=== PATIENT | male | born 1985 | race African-American/Black ===

== ENCOUNTER 2025-06-27 08:15 | Outpatient (AMB) | payer OTHER, SELFPAY ==
--- NOTE | 2025-06-27 08:23 | A.OFFPC_ITS ---
Vital Signs 06/27/25 08:36 Height 5 ft 8.66 in Weight 174 lb 4 oz BMI 26.0 BP 167/89 H Blood Pressure Location Lt brachial Position Sitting Pulse 76 Pulse Source Pulse Oximeter Temp 98.4 F Temp Source Oral Pulse Oximetry (%) 99 Oxygen Delivery Method Room Air Intake Visit Reasons: Crumb Packer / HBP Accompanied by: Self / Same As Patient Allergies diphenhydramine (From Benadryl) Allergy (Severe, Verified 06/27/25 08:29) throat swelling aspirin Allergy (Intermediate, Verified 06/27/25 08:29) Hives ibuprofen Allergy (Intermediate, Verified 06/27/25 08:29) Hives Medication List - Last Reconciled 06/27/25 by Sánchez Jane MD Tobacco use date assessed: 06/27/25 Dental Screening Dental Screen Date: 06/27/25 Did you have a dental visit in the last 12 months?: Yes Was dental information given to patient?: Patient has dentist HPI HPI Comments History of Present Illness Details History of Present Illness The patient is a 40 year old male presenting to [facility] and for follow-up of high blood pressure. Hypertension: The patient has a history of hypertension diagnosed about three years ago and was previously prescribed amlodipine and losartan 100 mg. He reports that he has not taken any blood pressure medications for the past year. Type 2 Diabetes: The patient was diagnosed with type 2 diabetes approximately three years ago. He was previously prescribed metformin 500 mg and semaglutide (Rybelsus) but has not taken these medications for the past year. He reports he last saw a manufacturing mechanic about two years ago and has never seen a clinical staff educator, movie star, or unload associate for his diabetes. Hyperlipidemia: The patient has a history of high cholesterol, for which he was advised to take omega-3 supplements. He reports he has not taken this for the past year. Psoriasis: The patient reports a history of psoriasis for many years, which has flared up and remained persistent for the past two years without treatment. He also mentions a family history of psoriasis. Surgical History: - No prior surgeries reported. Medications: - The patient reports not taking any of his previously prescribed medications, including amlodipine, losartan, metformin, and semaglutide, for the past year. 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 - Substance Use: Denies smoking, drinkin g alcohol, or using illicit drugs. - Sleep: Reports waking up at night to u rinate but otherwise sleeps well. Family History: - Psoriasis: Reports a family history of psoriasis. Past Medical History - Hypertension: Diagnosed approximately three years ago. - Type 2 Diabetes: Diagnosed approximate ly three years ago. - Hyperlipidemia: Diagnosed previously. - Nasal blockage: Previously prescribed fluticasone for a blocked nose, which he no longer takes as the issue is resolved. - Psoriasis: History for many years. - Hospitalizations: Denies any prior hos pitalizations. Health Maintenance - Ordered comprehensive lab work includi CBC, CMP, HbA1c, lipid panel, hepatitis B, hepatitis C, HIV, magnesium, syphilis, testosterone, TSH, urinalysis, vitamin B12, folate, and vitamin D. - Patient to have blood drawn today. - Plan to follow up in two weeks to revi ew results and determine next steps. [facility] Medical History (Updated 06/27/25 @ 08:58 by Sánchez Jane MD) Upslanting toenails Xerosis cutis Psoriasis Screening for diabetic retinopathy Overweight (BMI 25.0-29.9) Hyperlipidemia Hypertension Diabetes type 2 Family History (Updated 06/27/25 @ 08:31 by Luisa Negrete CMA) Mother HTN (hypertension) Father HTN (hypertension) Social History Housing: Apartment Patient Tobacco Use Status: Never used Tobacco e-Cigarette/Vaping Use: Never Used service: No Current occupational status: employed and student Cognitive needs: No Hearing needs: No Vision needs: Yes (glasses) Questionnaire PHQ-9 Over the last 2 weeks, how often have you been bothered by any of the following problems? 1. Little interest or pleasure in doing things: not at all 2. Feeling down, depressed, or hopeless: not at all 3. Trouble falling or staying asleep, or sleeping too much: not at all 4. Feeling tired or having little energy: not at all 5. Poor appetite or overeating: not at all 6. Feeling bad about yourself - or that you are a failure or have let yourself or your family down: not at all 7. Trouble concentrating on things, such as reading the newspaper or watching television: not at all 8. Moving or speaking so slowly that other people could have noticed. Or the opposite - being so fidgety or restless that you have been moving around a lot more than usual: not at all 9. Thoughts that you would be better off or of hurting yourself in some way: not at all Total score: 0 Depression Screening Interpretation: Negative Depression Screening Done: Yes Source: Developed by Drs. Kasi Schreiber, Ann Mccrary, Ernesto Ghotra and colleagues, with an educational rea from [employer]. Thrive Questionnaire Date Thrive assessed: 06/27/25 I am a: Patient What is your living situation today?: I have a steady place to live Within the past 12 months, did the food you bought not last and you didn't have the money to get more?: Never true Within the past 12 months, did you worry whether your food would run out before you got money to buy more?: Never true Do you have trouble paying for medicines?: No Do you have trouble getting transportation to medical appointments?: No Do you have trouble paying your heating and electricity bill?: No Do you have trouble taking care of your child, family member or friend?: No Do you have trouble with day-to-day activities such as bathing, preparing meals, shopping, managing finances, etc.?: No Are you currently unemployed and looking for a job?: No Are you interested in more education?: Yes Please select the resources that you would like help with: None Currently or been in a relationship where the following occur: No concerns reported THRIVE Score: 0 AUDIT C Alcohol Use Questionnaire (AUDIT-C) 1. How often do you have a drink containing alcohol?: Never Total Score: 0 COLTON-7 AMB Questionnaire COLTON-7 Date COLTON - 7 assessed: 06/27/25 Feeling nervous, anxious, or on edge: 0 = Not at all Not being able to stop or control worryin = Not at all Worrying too much about different things: 0 = Not at all Trouble relaxin = Not at all Being so restless that it is hard to sit still: 0 = Not at all Becoming easily annoyed or irritable: 0 = Not at all Feeling afraid as if something awful might happen: 0 = Not at all Total COLTON-7 score (0-4 normal; 5-9 mild; 10-14 moderate; 15-21 severe): 0 Source: Developed by Drs. Kasi Schreiber, Ann Mccrary, Ernesto Ghotra and colleagues, with an educational rea from [employer]. Review of Systems Narrative Review of Systems - Urologic: Reports nocturia and urinary frequency. - Denies dysuria or difficulty voiding. - Musculoskeletal: Denies leg swelling. - Dermatologic: Reports psoriasis. - Neurologic: Denies tingling in the feet. - Constitutional: Denies pain. - Gastrointestinal: Reports normal bowel movements. 10-point ROS reviewed and negative except as noted in HPI Physical exam (Primary Care) Vital Signs: Last Vital Signs Temp 98.4 F 06/27/25 08:36 Pulse 76 06/27/25 08:36 BP 167/89 H 06/27/25 08:36 Pulse Ox 99 06/27/25 08:36 Oxygen Delivery Method Room Air 06/27/25 08:36 BMI result Body Mass Index 26.0 Tobacco/Smoking Status: Tobacco use Status Tobacco use date assessed 06/27/25 06/27/25 08:24 Patient Tobacco Use Status Never used Tobacco 06/27/25 08:24 e-Cigarette/Vaping Use Never Used 06/27/25 08:24 PHQ-9: PHQ-9 Score PHQ-9: Total score 0 06/27/25 08:36 Depression Screening Interpretation: Negative Thrive Assessment: Date of Thrive Assessment Date Thrive assessed 06/27/25 06/27/25 08:24 Currently or been in a relationship where the following occur: No concerns reported Narrative Physical Exam General: Well-appearing, in no acute distress. Vital signs: Within normal limits. HEENT: Normocephalic, atraumatic. PERRLA, EOMI. Conjunctiva clear, sclera anicteric. Oropharynx clear, mucous membranes moist. TMs intact bilaterally. Neck: Supple, no lymphadenopathy, no thyromegaly, no JVD or carotid bruits. Cardiovascular: RRR, normal S1/S2, no murmurs, rubs, or gallops. Peripheral pulses 2+ and symmetric. No edema. Respiratory: Lungs clear to auscultation bilaterally, no wheezes, rales, or rhonchi. Normal effort. Abdomen: Soft, non-tender, non-distended. Normoactive bowel sounds. No hepa tosplenomegaly, no masses. MSK: Full range of motion, no joint swelling or deformity. Normal gait. Skin: Warm, dry, intact. Psoriasis noted. dry skin , lesions, or pallor. up slanting toenail great toe Neuro: Alert and oriented x3. Cranial nerves II-XII intact. Strength 5/5 throughout. Sensation intact. Reflexes 2+ symmetric. Normal coordination and gait. Psych: Appropriate mood and affect. Normal judgment and insight. Office Procedures Flu Questionnaire Does the patient have a severe egg allergy?: No Does the patient have severe life threatening allergies?: No Does the patient have a fever or illness today?: No Has the patient ever had Guillain-Zapata Syndrome?: No Has the patient ever had any past reaction to a flu shot?: No Results AMB Hemoglobin A1c AMB Hemoglobin A1c 5.7 % Last Edit by Luisa Negrete CMA on 06/27/25 08:4 7 Immunizations Fluarix [id number] (PF) 45 mcg (15 mcg x 3)/0.5 mL IM syringe Performing Provider: Sánchez Jane MD [facility] Administered by: Luisa Negrete CMA on 06/27/25 08:49 Dose Route Admin Location Dispensed Lot Number Expiration Date [facility] Assistant Office Manager 0.5 mL IM Left Deltoid 0.5 mL [id number] 01/17/26 [id number] [employer]INE 2 VIS Given Date VIS Provided VIS Publication Date 06/27/25 Single Vaccine 24 Eligibility Eligibility Date Funding Source Not [facility] Eligible 06/27/25 Private Coding Level of Care Code Est Pt Level 4 (72399) Diagnoses Diabetes type 2 E11.9 Hypertension I10 Hyperlipidemia E78.5 Overweight (BMI 25.0-29.9) E66.3 Psoriasis L40.9 Xerosis cutis L85.3 Upslanting toenails Q84.6 Assessment & Plan Assessment & Plan (1) Diabetes type 2: Code(s): E11.9 - Type 2 diabetes mellitus without complications Category: Medical (2) Hypertension: Code(s): I10 - Essential (primary) hypertension Category: Medical (3) Hyperlipidemia: Code(s): E78.5 - Hyperlipidemia, unspecified Category: Medical (4) Overweight (BMI 25.0-29.9): Code(s): E66.3 - Overweight Category: Medical (5) Psoriasis: Code(s): L40.9 - Psoriasis, unspecified Category: Medical (6) Xerosis cutis: Code(s): L85.3 - Xerosis cutis Category: Medical (7) 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 Patient was informed and verbally consented to the use of an ambient scribe for clinic note documentation during this visit. Plan 1. Hypertension - The patient has been non-adherent with amlodipine and losartan for one year; these will be discontinued from his medication list to reflect current status. - Will re-evaluate blood pressure control after comprehensive lab work. 2. Type 2 Diabetes - The patient has been non-adherent with metformin and semaglutide for one year; these will be discontinued from his active medication list. - Ordered hemoglobin A1c to assess glycemic control over the past three months. - Placed referrals to a movie star for a diabetic foot exam, an unload associate to screen for retinopathy, a clinical staff educator, and a manufacturing mechanic. - A foot exam was performed in office today. 3. Hyperlipidemia - The patient is not currently taking any medication for high cholesterol. - Ordered a lipid panel to check cholesterol and triglycerides. 4. Psoriasis - A referral will be placed to dermatology for evaluation and management. - Will provide a copy of the referral to the patient. Discussion Notes I have explained to the patient that since he has not been taking his previously prescribed medications for hypertension, diabetes, and high cholesterol for the past year, I will be stopping them in his chart to accurately reflect his current regimen, which is no medications. I informed him that I will be ordering a comprehensive set of labs today to get a baseline of his overall health. We discussed the plan to re-evaluate his conditions and decide on the next steps for management once the lab results are back. I also explained the importance of diabetic care and have placed referrals for him to see a movie star for a foot exam, an unload associate to check for retinopathy, a clinical staff educator, and a manufacturing mechanic. Additionally, I placed a referral to dermatology for his psoriasis. The patient agreed to have his blood drawn today and to follow up in two weeks to review the results. Patient Instructions - You will have blood work done today to get a full picture of your health. - We have made referrals for you to see several specialists for your diabetes, including a foot doctor (movie star), an eye doctor (unload associate), a perinatal educator, and a manufacturing mechanic. - We have also made a referral for you to see a skin doctor (real estate clerk) for your psoriasis. - Please schedule a follow-up appointment in two weeks to go over your lab results and discuss the next steps for your treatment. Medical Decision Making The patient is a 40-year-old male presenting to [facility] after a lapse of over a year. He has a known history of hypertension, type 2 diabetes, and hyperlipidemia, but has been non-adherent with all prescribed medications (amlodipine, losartan, metformin, semaglutide) for the past year. Given the prolonged non-adherence, the immediate priority is to re-evaluate his current health status. The decision was made to discontinue all prior medications from his active list to reflect his current state accurately. Comprehensive lab work, including CBC, CMP, HbA1c, and a lipid panel, has been ordered to assess his metabolic control and organ function. This will provide the necessary data to make informed decisions about restarting or modifying his treatment regimen. Given his diagnosis of type 2 diabetes and lack of specialist follow-up, referrals to podiatry, ophthalmology, a clinical staff educator, and a manufacturing mechanic are crucial for comprehensive management and prevention of complications. His report of psoriasis, with a flare-up over the past two years, warrants a dermatology referral for evaluation and management. The plan is to review lab results in two weeks to formulate a tailored treatment plan. Total Time Statement 30 min Total time spent caring for the patient today includes pre-visit chart review, documentation, review of laboratory and diagnostic imaging results, medication reconciliation, medically necessary evaluation, counseling on diagnoses, care coordination, ordering appropriate tests and medications, review of tests performed by other providers, reporting test results to the patient, and communication with other healthcare providers. Orders: Orders Complete Blood Count Auto Diff Today Z13.9 - Encounter for screening, unspecified Comprehensive Met. Panel Today Z13.9 - Encounter for screening, unspecified Hepatitis C Antibody Today Z13.9 - Encounter for screening, unspecified HIV Ab/Ag Today Z13.9 - Encounter for screening, unspecified UA CC w/rflx Micro + Cult Today Z13.9 - Encounter for screening, unspecified Hemoglobin A1c Today Z13.9 - Encounter for screening, unspecified Magnesium Today Z13.9 - Encounter for screening, unspecified Vitamin D 1,25 dihydroxy Today Z13.9 - Encounter for screening, unspecified Hepatitis B Surface Antibody Today Z13.9 - Encounter for screening, unspecified AMB Hemoglobin A1c Today Z13.9 - Encounter for screening, unspecified Testosterone, Free/Total Today Z13.9 - Encounter for screening, unspecified Influenza [id number] Immunization Today Z23 - Encounter for immunization Hepatitis B Surface Antigen Today Z13.9 - Encounter for screening, unspecified Syphilis Screen Today Z13.9 - Encounter for screening, unspecified TSH reflex Free T4 Today Z13.9 - Encounter for screening, unspecified Lipid Panel Today Z13.9 - Encounter for screening, unspecified Vitamin B12 and Folate Today Z13.9 - Encounter for screening, unspecified Referrals Podiatry Referral E11.9 - Type 2 diabetes mellitus without complications Nurse Navigator Referral E11.9 - Type 2 diabetes mellitus without complications Nutrition/Dietitian Referral E11.9 - Type 2 diabetes mellitus without complications Dermatology Referral L40.9 - Psoriasis, unspecified Ophthalmology Referral Z13.5 - Encounter for screening for eye and ear disorders
[2025-06-27 08:36] VITALS: BP 167/89; PULSE 76; TEMP 36.9; O2SAT 99; BMI 26.0
== END 2025-06-27 09:06 | disposition home or self-care (01) ==
LOC: HO.HMCFMS 08:16
PROVIDERS: PCP Student in an Organized Health Care Education/Training Program; Visit Provider Student in an Organized Health Care Education/Training Program
DX: E11.9 Type 2 diabetes mellitus without complications (principal); I10 Essential (primary) hypertension; E78.5 Hyperlipidemia, unspecified; E66.3 Overweight; L40.9 Psoriasis, unspecified; L85.3 Xerosis cutis; Q84.6 Other congenital malformations of nails; Z13.9 Encounter for screening, unspecified; Z23 Encounter for immunization

== ENCOUNTER 2025-06-27 08:15 | Outpatient (REF) | payer OTHER, SELFPAY ==
[2025-06-27 13:42] LABS: Appearance Urine Turbid; Glucose Urine UA Negative (Negative); PH 6.0 (5.0-9.0); Specific Gravity - Urine 1.025 (1.005-1.025)
[2025-06-27 13:48] LABS: MANUAL DIFF FLAG NO
[2025-06-27 14:20] LABS: Alanine Aminotransferase 36 U/L (0-40); Albumin Level 4.5 g/dL (3.5-5.0); Alkaline Phosphatase 108 U/L (39-117); Anion Gap 11 (12-20); Aspartate Amino Transferase 26 U/L (5-37); Blood Urea Nitrogen 16 mg/dL (9-16); Calcium 9.1 mg/dL (8.4-10.2); Carbon Dioxide 26 mmol/L (22-29); Chloride 109 mmol/L (96-108); Cholesterol 218 mg/dL (<200); Estimated Glomerular Filt Rate > 60; HDL Cholesterol 45 mg/dL (>40); Magnesium 2.3 mg/dL (1.6-2.6); Potassium 3.9 mmol/L (3.3-5.1); Sodium 142 mmol/L (135-145); Total Protein 7.7 g/dL (6.5-8.0); Triglycerides 87 mg/dL (<150)
[2025-06-27 14:21] LABS: Hematocrit 50.5 % (42.0-52.0); Hemoglobin 16.5 g/dl (14.0-18.0); Imm Gran Abs Auto 0.05 X10*3/uL (0.00-0.03); Imm Gran Pct Auto 0.7 % (0.0-0.4); Lymphocytes Absolute Auto 3.4 X10*3/uL (1.2-4.9); Mean Corpuscular HGB Conc 32.7 g/dl (31.0-36.0); Mean Corpuscular Hemoglobin 28.9 pg (27.0-33.0); Mean Corpuscular Volume 88.4 fL (80.0-98.0); NRBC Abs Auto 0.000 X10*3/uL (0.0-0.012); NRBC Pct Auto 0.0 /100WBC (0.0-0.2); Platelet Count 312 X10*3/uL (160-400); Red Blood Count 5.71 X10*6/uL (4.60-5.80); White Blood Count 7.3 X10*3/uL (4.8-10.8)
[2025-06-27 14:38] LABS: Vitamin B12 334 pg/mL (200-900)
[2025-06-27 18:24] LABS: Folate 6.5 ng/mL (> or = 4.0)
[2025-06-28 03:59] LABS: Syphilis Screen Nonreactive (Nonreactive)
[2025-06-28 04:14] LABS: HBS Num1 12.93 mIU/mL (0-7.99); HBsAGNum1 0.53 S/CO (0.00-0.99); HIV Num 1 0.06 S/CO (0.00-0.99); Hepatitis B Surface Antigen Negative (Negative); ~HepC Num1 0.07 S/CO (0.00-0.79); ~Hepatitis B Surface Antibody REACTIVE (Nonreactive); ~Hepatitis C Antibody Nonreactive (Nonreactive)
[2025-07-01 15:04] LABS: VITAMIN D (1,25 OH) D3 57 pg/mL; Vit D (1,25-Dihydroxy) Total 57 pg/mL (18-72); Vitamin D (1,25 OH) D2 <8 pg/mL
[2025-07-02 17:14] LABS: Testosterone, Free 69.8 pg/mL (35.0-155.0)
== END 2025-06-27 08:16 | disposition home or self-care (01) ==
LOC: HO.HKASLDS 08:15
PROVIDERS: PCP Student in an Organized Health Care Education/Training Program; Visit Provider Student in an Organized Health Care Education/Training Program
DX: Z13.9 Encounter for screening, unspecified (principal); Z23 Encounter for immunization; E11.9 Type 2 diabetes mellitus without complications; I10 Essential (primary) hypertension; E78.5 Hyperlipidemia, unspecified; E66.3 Overweight; L85.3 Xerosis cutis; L40.9 Psoriasis, unspecified; Q84.6 Other congenital malformations of nails; Z68.26 Body mass index [BMI] 26.0-26.9, adult
CPT/HCPCS: 36415; 80053; 80061; 81003; 82607; 82652; 82746; 83036; 83735; 84402; 84403; 84443; 85025; 86706; 86780; 86803; 87340; 87389; 90471; 90656; 99212

== ENCOUNTER 2025-07-18 15:06 | Outpatient (AMB) | payer OTHER, SELFPAY ==
--- NOTE | 2025-07-18 15:10 | MHC.PC.OV ---
Vital Signs 07/18/25 15:13 07/18/25 15:28 Height 5 ft 8.66 in Weight 244 lb 2 oz BMI 36.4 BP 160/95 H 134/82 Blood Pressure Location Lt brachial Lt brachial Position Sitting Sitting Respiration 17 Pulse 70 Pulse Source Pulse Oximeter Temp 98.3 F Temp Source Oral Pulse Oximetry (%) 97 Oxygen Delivery Method Room Air Intake Visit Reasons: 2 wk - lab review Intake Note: Patient present for lab review. Process Eng Required: No Accompanied by: Self / Same As Patient Allergies diphenhydramine (From Benadryl) Allergy (Severe, Verified 07/18/25 15:12) throat swelling aspirin Allergy (Intermediate, Verified 07/18/25 15:12) Hives ibuprofen Allergy (Intermediate, Verified 07/18/25 15:12) Hives Medication List - Last Reconciled 07/19/25 by Sánchez Jane MD No Known Home Meds Tobacco use date assessed: 06/27/25 Dental Screening Dental Screen Date: 06/27/25 HPI HPI Comments History of Present Illness Details History of Present Illness The patient is a 40 year old male presenting for review of lab results. Prediabetes: Recent lab results show an HbA1c of 5.9, which falls within the prediabetic range of 5.7 to 6.4. Hypercholesterolemia: The patient's recent lab results indicate a total cholesterol level of 218 mg/dL, which is above the recommended level of less than 200 mg/dL, and an LDL cholesterol of 156 mg/dL, which is above the goal of less than 100 mg/dL. Social History: - Nutrition: The patient will be referred to a accounting consultant for education on changing eating habits. - Exercise: The patient has been advised to increase physical activity, with a goal of 30 minutes of moderate-intensity exercise daily. Diagnostic Results: - HbA1c: 5.9 (prediabetic range 5.7-6.4, diabetes ???6.5) - Total Cholesterol: 218 mg/dL (goal <200 mg/dL) - LDL Cholesterol: 156 mg/dL (goal <100 mg/dL) Past Medical History Health Maintenance - Discussed lifestyle modifications for management of prediabetes and hypercholesterolemia. - A referral for nutritional counseling has been placed to address eating habits. - Recommended 30 minutes of moderate-intensity physical activity daily, equivalent to 150 minutes per week, to help with weight loss and glycemic control. - Advised follow-up in 3 months to repeat labs and assess progress. This 37-year-old male established care on October 30, 2021, for an annual physical after a 10-year lapse in medical attention. At his initial visit, he reported a year-long history of frequent headaches and high blood pressure readings (160s-170s systolic) taken at his workplace. His physical exam was significant for a blood pressure of 160/100 mmHg, a pulse of 108, and obesity with a BMI of 36.03. He reported drinking 5-6 beers each weekend and had a family history of hypertension in both parents. Initial assessments included essential hypertension, snoring, and obesity. An initial workup was promptly initiated. An EKG performed on the first day of care was noted to be abnormal, meeting high voltage criteria.?Laboratory studies were also ordered.?A follow-up visit on November 13, 2021, reviewed these results, leading to diagnoses of hypertriglyceridemia, dyslipidemia, and prediabetes. His blood pressure remained elevated at 160/100 mmHg.?A plan was made for an echocardiogram, a sleep study, and counseling on a Mediterranean diet and weight loss. Management for his cardiovascular risk factors was started. He was initially prescribed lisinopril 10 mg,?but this was later discontinued due to an allergy.?He was then started on amlodipine 2.5 mg daily on November 13, 2021,?which was increased to 5 mg on November 27, 2021, due to persistent hypertension (BP 140/90).?For his dyslipidemia, Vascepa (icosapent ethyl) was started.?An echocardiogram on December 05, 2021, revealed mild concentric left ventricular hypertrophy (LVH) with a normal ejection fraction of 55%. By October 2022, the patient's clinical picture had evolved. He reported new symptoms of increased thirst (polydipsia) and frequent nighttime urination.?His weight had increased, with his BMI rising to 40.61. Laboratory tests, including hemoglobin A1c, were ordered to investigate his polydipsia.?A follow-up on December 18, 2022, confirmed a new diagnosis of Type 2 Diabetes Mellitus with hyperglycemia, based on the lab results from October.?The patient acknowledged difficulty with lifestyle changes, including reducing his juice intake. Treatment was initiated for his newly diagnosed Type 2 Diabetes. On December 18, 2022, he was started on metformin 500 mg daily and Rybelsus (semaglutide), which was increased to 7 mg daily.?Losartan was also added to his regimen for hypertension.?He received a referral to a inclusion special educator and an endocrinology follow-up was scheduled.?Other ongoing treatments included fluticasone for chronic rhinitis and icosapent ethyl for dyslipidemia. As of his most recent visit on June 27, 2023, the patient showed significant improvement. His blood pressure was better controlled at 122/86 mmHg, and his HgbA1c had decreased to 5.4% from a high of 8% earlier in the year. He reported tolerating his medications well and making positive lifestyle changes, such as reducing juice intake. His diagnoses included well-controlled essential hypertension and Type 2 Diabetes without complications, along with moderate obstructive sleep apnea, dyslipidemia, severe obesity, and left ventricular hypertrophy. The patient?s current primary diagnoses are Type 2 Diabetes Mellitus, essential hypertension, dyslipidemia, moderate obstructive sleep apnea, and class 2 severe obesity.?His current medication regimen includes amlodipine 10 mg daily and losartan 100 mg daily for hypertension; metformin and Rybelsus (semaglutide) for diabetes; Vascepa (icosapent ethyl) for dyslipidemia; and fluticasone (Flonase) for chronic rhinitis. He is tolerating these medications well. The plan is to continue this regimen and follow up in six months. 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 status: employed and student Cognitive needs: No Hearing needs: No Vision needs: Yes (glasses) Questionnaire Thrive Questionnaire Date Thrive assessed: 06/27/25 I am a: Patient What is your living situation today?: I have a steady place to live Within the past 12 months, did the food you bought not last and you didn't have the money to get more?: Never true Within the past 12 months, did you worry whether your food would run out before you got money to buy more?: Never true Do you have trouble paying for medicines?: No Do you have trouble getting transportation to medical appointments?: No Do you have trouble paying your heating and electricity bill?: No Do you have trouble taking care of your child, family member or friend?: No Do you have trouble with day-to-day activities such as bathing, preparing meals, shopping, managing finances, etc.?: No Are you currently unemployed and looking for a job?: No Are you interested in more education?: Yes Currently or been in a relationship where the following occur: No concerns reported THRIVE Score: 0 COLTON-7 AMB Questionnaire COLTON-7 Date COLTON - 7 assessed: 06/27/25 Source: Developed by Drs. Kasi Schreiber, Ann Mccrary, Ernesto Ghotra and colleagues, with an educational rea from [employer] Review of Systems Narrative Review of Systems - General: The patient denied any questions or concerns when asked. 10-point ROS reviewed and negative except as noted in HPI Physical exam (Primary Care) Vital Signs: Last Vital Signs Temp 98.3 F 07/18/25 15:13 Pulse 70 07/18/25 15:13 Resp 17 07/18/25 15:13 BP 134/82 07/18/25 15:28 Pulse Ox 97 07/18/25 15:13 Oxygen Delivery Method Room Air 07/18/25 15:13 BMI result Body Mass Index 36.4 Tobacco/Smoking Status: Tobacco use Status Tobacco use date assessed 06/27/25 07/18/25 15:15 Patient Tobacco Use Status Never used Tobacco 07/18/25 15:15 e-Cigarette/Vaping Use Never Used 07/18/25 15:15 Thrive Assessment: Date of Thrive Assessment Date Thrive assessed 06/27/25 07/18/25 15:15 Currently or been in a relationship where the following occur: No concerns reported Narrative Physical Exam General: Well-appearing, in no acute distress. Vital signs: Within normal limits. HEENT: Normocephalic, atraumatic. PERRLA, EOMI. Conjunctiva clear, sclera anicteric. Oropharynx clear, mucous membranes moist. TMs intact bilaterally. Neck: Supple, no lymphadenopathy, no thyromegaly, no JVD or carotid bruits. Cardiovascular: RRR, normal S1/S2, no murmurs, rubs, or gallops. Peripheral pulses 2+ and symmetric. No edema. Respiratory: Lungs clear to auscultation bilaterally, no wheezes, rales, or rhonchi. Normal effort. Abdomen: Soft, non-tender, non-distended. Normoactive bowel sounds. No hepatosplenomegaly, no masses. MSK: Full range of motion, no joint swelling or deformity. Normal gait. Skin: Warm, dry, intact. No rashes, lesions, or pallor. Neuro: Alert and oriented x3. Cranial nerves II-XII intact. Strength 5/5 throughout. Sensation intact. Reflexes 2+ symmetric. Normal coordination and gait. Psych: Appropriate mood and affect. Normal judgment and insight. Coding Level of Care Code Est Pt Level 3 (18018) Add On Problem Visit Only Diagnoses Diabetes type 2 E11.9 Hyperlipidemia E78.5 Class 2 obesity E66.812 Hypertension I10 Moderate obstructive sleep apnea G47.33 Assessment & Plan Assessment & Plan (1) Diabetes type 2: Comment: diet controlled Code(s): E11.9 - Type 2 diabetes mellitus without complications Category: Medical (2) Hyperlipidemia: Comment: add statin due to DMT2 dx Code(s): E78.5 - Hyperlipidemia, unspecified Category: Medical (3) Class 2 obesity: Code(s): E66.812 - Obesity, class 2 Category: Medical (4) Hypertension: Comment: diet controlled Code(s): I10 - Essential (primary) hypertension Category: Medical (5) Moderate obstructive sleep apnea: Code(s): G47.33 - Obstructive sleep apnea (adult) (pediatric) Category: Medical Plan Consent Patient was informed and verbally consented to the use of an ambient scribe for clinic note documentation during this visit. Plan 1. Prediabetes/DMT2 - The patient's HbA1c of 5.9 was discussed, noting it falls in the prediabetic range and requires intervention to prevent progression to diabetes. - Management will focus on lifestyle changes, including dietary modification and increased physical activity. - A nutrition referral has been placed for education on eating habits. - Pharmacotherapy is deferred at this time, as there is significant room for improvement with lifestyle changes. - Plan to follow up in 3 months to repeat labs and evaluate progress. 2. Hypercholesterolemia - Addressed elevated total cholesterol of 218 mg/dL and LDL cholesterol of 156 mg/dL. - Management will consist of lifestyle modifications, including changes in eating habits and increased physical activity, to reduce cardiovascular risk. - Plan to re-evaluate with repeat lipid panel in 3 months. Discussion Notes I reviewed the patient's recent lab results, which showed an HbA1c of 5.9, indicating prediabetes, and elevated cholesterol with a total cholesterol of 218 and LDL of 156. We discussed that these are lifestyle-related issues and that immediate changes are needed to prevent progression to type 2 diabetes and reduce his cardiovascular risk. I advised a plan focused on lifestyle modification, including a referral to nutrition and a recommendation for 30 minutes of moderate-intensity exercise daily. I explained that I am not recommending medication at this time because his A1c of 5.9 allows room for improvement through these changes, but would reconsider if his level was higher, such as 6.4. We agreed to a follow-up appointment in 3 months to repeat labs and assess his progress. Patient Instructions - Your recent lab work shows you are at risk for developing diabetes and have high cholesterol. - We have arranged for a behavior support specialist to contact you to help you with changing your eating habits. - Try to get at least 30 minutes of physical activity every day. - Your exercise should be at a moderate pace, which means you should be able to talk but not sing while doing it. - For now, we will focus on these lifestyle changes instead of starting medication. - Please schedule a follow-up appointment in 3 months to check your labs and see how you are doing. Medical Decision Making The patient is a 40-year-old male whose recent lab work is significant for an HbA1c of 5.9 and dyslipidemia, specifically a total cholesterol of 218 mg/dL and LDL of 156 mg/dL. These results confirm diagnoses of prediabetes and hypercholesterolemia, which are primarily lifestyle-driven. Given that his A1c is at the lower end of the prediabetic range, immediate pharmacotherapy is not indicated. The decision was made to initiate a trial of intensive lifestyle modification, including a formal nutrition referral and a specific exercise prescription of 30 minutes of moderate-intensity activity daily. This approach aims to prevent the progression to type 2 diabetes and reduce overall cardiovascular risk. A follow-up in 3 months is essential to reassess metabolic and lipid panels to determine the effectiveness of these interventions and to decide on any future need for medication. Total Time Statement 20 min Total time spent caring for the patient today includes pre-visit chart review, documentation, review of laboratory and diagnostic imaging results, medication reconciliation, medically necessary evaluation, counseling on diagnoses, care coordination, ordering appropriate tests and medications, review of tests performed by other providers, reporting test results to the patient, and communication with other healthcare providers. Medications: New atorvastatin (Lipitor) 20 mg PO BEDTIME 90 tabs 0RF
[2025-07-18 15:13] VITALS: BP 160/95; PULSE 70; RESP 17; TEMP 36.8; O2SAT 97; BMI 36.4
[2025-07-18 15:28] VITALS: BP 134/82
--- OUTSIDE RECORDS SUMMARY | 2025-07-18 17:21 | XMS_ITS | Clinical Summary ---
Author Organization [facility] Address [address] [place] [address] Phone Care Team Providers Care Netezza Developer Name Role Phone Physician, No Pcp Primary Care Provider Unavaila ble Allergies Active Allergy Reactions Criticality Noted Date Comments Aspirin Hives Medium 09/04/2024 Diphenhydramine Hcl Anaphylaxis High 09/04/2024 My throat closing Ibuprofen Hives,Angioedema High 09/04/2024 My throat swelling Medical History Medical History Date Comments Hypertension Diabetes mellitus ([facility] V24, [facility] V28) Social History Tobacco Use Types Packs/Day Years Used Date Smoking Tobacco: Never Tobacco Cessation:Counseling Given: Not Answered Alcohol Use Standard Drinks/Week Comments Never 0 (1 standard drink = 0.6 oz pur e alcohol) Sex and Gender Information Value Date Recorded Sex Assigned at Male 09/04/2024 6:56 PM EST Legal Sex Male 5:45 PM EST Gender Identity Male 09/04/2024 6:56 PM EST Sexual Orientation Straight 09/04/2024 6: 56 PM EST Last Filed Vital Signs Vital Sign Reading Time Taken Comments Blood Pressure 126/85 09/04/2024 5:55 PM EST Pulse 80 09/04/2024 5:55 PM EST Temperature 36.3 C (97.3 F) 09/04/2024 5:55 PM EST Respiratory Rate 20 09/04/2024 5:55 PM EST Oxygen Saturation 100% 09/04/2024 5:55 PM EST Inhaled Oxygen Concentration - - Weight 106 kg (233 lb) 09/04/2024 5:55 PM EST Height 175.3 cm (5' 9 ) 09/04/2024 5:55 PM EST Body Mass Index 34.41 09/04/2024 5:55 PM EST Plan of Treatment Health Maintenance Due Date Last Done Comments Diabetes: Annual Foot Exam 1997 Diabetes: Annual Retina Eye Exam 1997 DTaP,Tdap,and Td Vaccines (1 - Tdap) 2006 Hepatitis B Vaccines (1 of 3 - 19+ 3-dose series) 2006 HPV Vaccines (1 - 3-dose SCD M series) 2014 Diabetes: Annual GFR (Glomerular Filtration Rate) 06/23/2024 06/23/2023, 10/31/2021 Depression Screening 07/21/2024 Cholesterol Screening (Lipid Panel) 09/04/2024 Diabetes: Annual Urine Albumin-Creatinine Ratio (uACR) 09/04/2024 06/23/2023 Diabetes: Blood Sugar Contro l Test (HGBA1C) 09/04/2024 HIV Screening 09/04/2024 Hypertension/CHF/CAD Annual BMP Blood Test 09/04/2024 06/23/2023, 10/31/2021 Social Influencers of Health Screening 09/04/2024 COVID-19 Vaccine (4 - 2024-2 6 season) 2025 08/22/2021, 09/23/2020, 09/02/2020 Influenza Vaccine (#1) 2025 04/19/2016 RSV Immunization Adult Patients (1 - 1-dose 75+ series) 2062 Hepatitis C Screening Completed 10/31/2021 Pneumococcal Vaccine: Pediatrics (0 to 5 Years) and At-Risk Patients (6 to 49 Years) Aged Out 06/27/2023 No longer eligible b ased on patient's age to complete this topic HIB Vaccines Aged Out No longer eligi ble based on patient's age to complete this topic Hepatitis A Vaccines Aged Out No long er eligible based on patient's age to complete this topic IPV Vaccines Aged Out No longer eligi ble based on patient's age to complete this topic MMR Vaccines Aged Out No longer eligi ble based on patient's age to complete this topic Meningococcal ACWY Vaccine Aged Out N o longer eligible based on patient's age to complete this topic Meningococcal B Vaccine Aged Out No l onger eligible based on patient's age to complete this topic RSV Immunization Patients Under 20 months Aged Out No longer eligible b ased on patient's age to complete this topic Varicella Vaccines Aged Out No longer eligible based on patient's age to complete this topic Insurance [facility] PL[facility] Care Teams Netezza Developer Relationship Specialty Start Date End Date Physician, No Pcp PCP - General 09/04/24
--- OUTSIDE RECORDS SUMMARY | 2025-07-18 17:21 | XMS_ITS | Encounter Summary ---
Author Organization [facility] Address [address] [place] [id number] Phone Care Team Providers Care Medical Doctor Md/Medical Director Name Role Phone Breanna Bradley DO Primary Care Provider Breanna Bradley DO Unavailable [phone] Brian Cisneros MD Unavailable [phone] Harvey Valentine MD Unavailable Lisa Myers PharmD Un available Encounter Details Date Type Department Care Team (Latest Contact Info) Description 09/12/2023 Ancillary Orders [facility] [address] [place] [address] Breanna Bradley DO [address] [place] [address] [email or web address] Screening examination for pulmonary tuberculosis (Primary Dx) Social History Tobacco Use Types Packs/Day Years Used Date Smoking Tobacco: Never Smokeless Tobacco: Never Alcohol Use Standard Drinks/Week Comments Yes 0 (1 standard drink = 0.6 oz pur e alcohol) 3 times weekly Education Answer Date Recorded Are you interested in more education? Not on kiran e 11/16/2022 Are you concerned about learning? Not on file 11/16/2022 No 11/16/2022 No 11/16/2022 Digital Access Answer Date Recorded No 12/11/2022 No 12/11/2022 Reliable internet access at home? Not on file 12/11/2022 Device with a working camera? Not on file Sex and Gender Information Value Date Recorded Sex Assigned at Male 08/22/2021 4:18 PM EST Legal Sex Male 4:14 PM EST Gender Identity Male 08/22/2021 4:18 PM EST Sexual Orientation Straight 08/22/2021 4: 18 PM EST documented as of this encounter Plan of Treatment Not on file documented as of this encounter Goals Goal Patient Goal Type Associated Problems Recent Progress Patient-Stated? Author CHW: Chronic Disease Management Care Management No Ani Ramirez [place] documented as of this encounter Results * XR CHEST PA AND LATERAL 2 VIEWS (09/12/2023 3:56 PM EST) Anatomical Region Laterality Modality Chest Radiographic Sara ging Narrative 09/12/2023 3:58 PM EST Table formatting from the original result was not included. XR CHEST Clinical History: 1. Screening examination for pulmonary tuberculosis Date of study: 09/12/23 COMPARISON: [None.] VIEWS: 2 FINDINGS: No airspace consolidation or pleural effusion evident. Heart appears normal in size. Mild curvature of thoracic spine convex left. IMPRESSION: No acute abnormality evident on chest radiograph. Lungs appear clear. Slight curvature of the spine which may relate to patient positioning or mild scoliosis. Performed at [facility] Breanna Bradley DO IMG XR CHEST Final Result documented in this encounter Visit Diagnoses Diagnosis Screening examination for pulmonary tuberculosis- Primary Screening examination for pulmonary tuberculosis documented in this encounter Additional Health Concerns Assessment Noted Time PHQ-9 Depression Total Score: 1 10/31/19 22 3:19 PM EDT PHQ-2 Depression Total Score: 0 10/31/19 22 3:19 PM EDT documented as of this encounter Care Teams Medical Doctor Md/Medical Director Relationship Specialty Start Date End Date Breanna Bradley DO [address] [place] [id number] PCP - General Family Medicine 10/23/21 Breanna Bradley DO [address] [place] [address] [email or web address] Insurance Assigned Provider 10/25/23 02/28/24 Brian Cisneros MD [address] [place] [address] [email or web address] Fresh Foods Technician Cardiology 10/27/22 Harvey Valentine MD [address] [place] [address] [email or web address] Detective Chief Internal Medicine 10/27/22 Lisa Myers, [employer] [address] [place] [address] [email or web address] Pharmacist Pharmacy 05/30/23 documented as of this encounter Additional Source Comments The information contained in this document represents components of the legal health record. It is not the complete legal health record.[facility]
--- OUTSIDE RECORDS SUMMARY | 2025-07-18 17:21 | XMS_ITS | Clinical Summary ---
Author Organization [facility] Address [address] [address] Phone Care Team Providers Care Shovel Logger Name Role Phone Breanna Bradley DO Primary Care Provider Brian Cisneros MD Unavailable [phone] Harvey Valentine MD Unavailable Lisa Myers PharmD Un available Allergies Active Allergy Reactions Criticality Noted Date Comments Aspirin Hives Medium 10/30/2021 Diphenhydramine Hcl 10/30/2021 Lisinopril Cough High 11/13/2021 Medications fluticasone propionate (FLONASE) 50 mcg/actuation nasal spray 2 sprays each nostril 5 minutes apart every 24 hours 1 mL 1 2 Active amLODIPine (NORVASC) 10 MG tabletIndications :Essential hypertension TAKE 1 TABLET BY MOUTH EVERY DAY 90 tablet 3 3 Active metFORMIN (GLUCOPHAGE) 500 MG tabletIndications :Type 2 diabetes mellitus without complication, without long-term current use of insulin Take 1 tablet (500 mg total) by mouth daily. Administer with a meal. 90 tablet 4 3 Active icosapent ethyL (VASCEPA) 1 gram capsuleIndication s:Hypertriglyceri demia TAKE 2 CAPSULES BY MOUTH 2 TIMES A DAY. 360 capsule 3 3 Active losartan (COZAAR) 100 MG tabletIndications :Essential hypertension take 1 tablet by mouth every day 90 tablet 3 4 Active RYBELSUS 14 mg tabletIndications :Type 2 diabetes mellitus without complication, without long-term current use of insulin take 1 tablet by mouth every day 90 tablet 4 Active Active Problems Problem Noted Date Diagnosed Date Type 2 diabetes mellitus wit hout complication, without long-term current use of insulin 10/27/2022 Overview (07/06/2023): Last HgbA1c 5.4%, down from 8% earlier this year. Pt should continue current regimen. Assessment & Plan (02/25/2023 4:02 PM EDT): Improving controlled type 2 DM. Patient has modified diet. With diet, Rybelsus and metformin, A1c improved from 8 to 6 in 3 months. Patient is doing well. Patient is not interested in injectables. Plan - Continue diet Increase Rybelsus to 14 mg as tolerated Continue metformin See him in 6 months if stable. Left ventricular hypertrophy 02/26/2022 Assessment & Plan (02/26/2022 12:18 PM EDT): Borderline LVH noted on EKG from 12/09. Echo confirmed the presence of mild LVH which is likely related to his hypertension Class 2 severe obesity with body mass index (BMI) of 35 to 39.9 with serious comorbidity 12/19/2021 Assessment & Plan (02/25/2023 4:03 PM EDT): Doing well with GLP-1 RA and diet. Assessment & Plan (12/19/2021 3:38 PM EDT): Importance of weight loss was discussed in regards to improving the degree of sleep disordered breathing and snoring as well as reduction of mean pressure requirements, avoidance of excessive mask leak and related discomfort Deviated nasal septum 12/19/2021 Overview (12/19/2021): Left side Assessment & Plan (12/19/2021 3:39 PM EDT): Consider ENT referral for septoplasty and turbinate ablation if he were to have persistent complaints of nasal obstruction or difficulty with CPAP delivery Hypertrophy of inferior nasal turbinate 12/20/19 Overview (12/19/2021): Right side associated with left septal deviation Assessment & Plan (12/19/2021 3:41 PM EDT): As above Sleep disorder, shift work 12/19/2021 Overview (12/19/2021): 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 and will usually go go home but not be able to fall asleep until 1 or 2 AM Once asleep is aware of some short-lived awakenings throughout the night until finally getting out of bed by 6 or 7 AM and then returning and tried to sleep until 10 or 11 AM Assessment & Plan (12/19/2021 3:39 PM EDT): This may also be explaining the patient's difficulty from fall asleep after returning from work but I think it would be more important to make sure that once he goes to bed he is able to remain asleep until 10 or 11 AM the next morning and gets 7 to 8 hours of uninterrupted sleep Dyslipidemia 11/25/2021 Overview (10/27/2022): Due to age, cannot calculate ASCVD risk. Vascepa was Rx'd for hypertriglyceridemia, however this was not covered by insurance. I advised Pt to start taking OTC omega-3 fish oil 2000 units daily. I did also personnel counselor Pt at length regarding benefits of Mediterranean diet lifestyle, hardcopy handout from [employer] provided. Essential hypertension 10/30/2021 Overview (07/06/2023): Well-controlled, continue amlodipine 10mg PO daily, losartan 100mg PO daily. Assessment & Plan (04/03/2023 3:29 PM EDT): See HPI. BP is much improved. Will continue with the current regimen Assessment & Plan (12/19/2022 3:27 PM EDT): BP is too high. Reviewed some options. Notes a cough with lisinopril in the past. Will start losartan 50 mg per day Assessment & Plan (02/28/2022 2:00 PM EDT): Longstanding history of hypertension. Will increase his amlodipine to 10 mg per day but we also had a long talk about lifestyle changes. He has a lot of room for improvement. Will have him return in a few months. May need an additional agent Moderate obstructive sleep apnea 10/30/2021 Overview (12/19/2021): HST 11/27/21 Intermittent snoring AHI 23.4/HR SPO2 MELLISA 66% Autotritate pressure range (min and max in cm water): 5 to 20 cm H2O Humidification: Heated Humidifier CPAP/BIPAP Related Supplies: Heated Tubing used with CPAP/BIPAP Tubing: Heating Mask: Specify Usage While Sleeping to treat JOHANNY Length of Need: Lifetime 99 Years CPAP Machine (Order [id number]) General Supply Date: 12/19/2021 Department: [facility] Assessment & Plan (12/19/2021 3:38 PM EDT): Home sleep apnea test without EEG monitoring to provide an actual calculation of total sleep time may underestimate the true AHI and sleep disrupting impact of this patient's sleep disordered breathing Discussed risks of untreated severe JOHANNY including increased risk for HTN, heart disease including atrial fibrillation, coronary artery disease, congestive heart failure, as well as stroke. Risk of MVA due to drowsy driving also explained Discussed benefits of treatment of JOHANNY including improvement in daytime symptoms, particularly EDS. We also discussed potential reductions in risks for HTN and vascular disease in patients with severe JOHANNY. Therapeutic intervention options were discussed, I am recommending a trial of self adjusting CPAP with base mask fit, patient is agreeable and prescription is submitted The patient is advised to use a device all night every night or during usual sleep schedule and when napping as well as to report any issues with mask fitting and comfort so they can be addressed in a timely manner to assure long-term therapeutic adherence and success Electronic medical record portal message was sent to the patient containing Internet links to multiple sources of written and video information regarding CPAP acclimatization, mask fitting tips and troubleshooting advice etc. 3-month follow-up with compliance data adjust pressure settings as needed for PAP administration comfort and AHI suppression Resolved Problems Problem Noted Date Diagnosed Date Resolved Date Chronic rhinitis 12/19/2021 10/27/2022 Assessment & Plan (12/19/2021 3:39 PM EDT): Start an intranasal steroid spray; may also facilitate CPAP delivery Proper technique for the administration of the intranasal medication spray was demonstrated Immunizations Immunization Administration Dates Next Due COVID-19 (Pre-05/12) Pfizer Vaccine, mRNA, PF 08/22/2021,09/23/2020,09/02/2020 INFLUENZA, SPLIT VIRUS, TRIVALENT PF 04/19/2016 Pneumococcal conjugate PCV20 06/27/2023 Family History Medical History Relation Comments Obesity Brother Snoring Brother Hypertension Father Snoring Father Hypertension Mother Relation Status Comments Brother Father Mother Social History Tobacco Use Types Packs/Day Years Used Date Smoking Tobacco: Never Smokeless Tobacco: Never Tobacco Cessation:Counseling Given: Not Answered Alcohol Use Standard Drinks/Week Comments Yes 0 [...] Orientation Straight 08/22/2021 4: 18 PM EST Last Filed Vital Signs Vital Sign Reading Time Taken Comments Blood Pressure 130/90 07/23/2023 12:00 PM EST Avg BP from 07/06-07/23 (via Tableau dashboard) Pulse 103 07/23/2023 12:00 PM EST Temperature 36.6 C (97.8 F) 06/27/2023 1:24 PM EST Respiratory Rate - - Oxygen Saturation 97% 06/27/2023 1:2 4 PM EST Inhaled Oxygen Concentration - - Weight 115.2 kg (254 lb) 06/27/2023 1:2 4 PM EST Height 175.3 cm (5' 9.02 ) 04/03/2023 3 :21 PM EDT Body Mass Index 37.49 04/03/2023 3:21 PM EDT Plan of Treatment Health Maintenance Due Date Last Done Comments Adult Td,Tdap Booster 1987 DIABETIC EYE EXAM 10/27/2022 DEPRESSION SCREENING 10/30/2022 10/30/2021, 10/31/19 22 HEMOGLOBIN A1C 12/23/2023 06/23/2023, 02/2023, 02/25/2023, Additional history exists BLOOD PRESSURE 01/21/2024 07/23/2023 CREATININE LEVEL 06/23/2024 06/23/2023, 11/2022, 10/31/2021 LIPID PANEL 06/23/2024 06/23/2023, 1210/2022, 10/31/2021, Additional history exists POTASSIUM LEVEL 06/23/2024 06/23/2023, 0 11/2022, 10/31/2021 INFLUENZA VACCINE (#1) 2025 04/19/2016 COVID-19 VACCINE ( season) 2025 08/22/2021, 08/22/2021, 09/23/2020, Additional history exists HEPATITIS C SCREENING Completed 10/31/2021, 022 HIV ONE-TIME SCREENING (18-65 YEARS) Completed 10/31/2021 PNEUMOCOCCAL VACCINES (0-49 years) Completed 06/27/2023 SMOKING STATUS SCREENING (Once After 26 Yrs) Completed 06/27/2023 HEPATITIS A VACCINES Aged Out No long er eligible based on patient's age to complete this topic HIB VACCINES Aged Out No longer eligi ble based on patient's age to complete this topic MENINGOCOCCAL VACCINES (ACWY) Aged Out No longer eligible based on patient's age to complete this topic MENINGOCOCCAL VACCINES (B) Aged Out N o longer eligible based on patient's age to complete this topic Goals Goal Patient Goal Type Associated Problems Recent Progress Patient-Stated? Author CHW: Chronic Disease Management Care Management Ani Heard MA Medical Devices Not on file Procedures Procedure Name Priority Date/Time Associated Diagnosis Comments HEMOGLOBIN A1C Routine 06/23/2023 3:07 PM EST Type 2 diabetes mellitus without complication, without long-term current use of insulin DIRECT LDL Routine 06/23/2023 3:07 PM EST Dyslipidemia COMPREHENSIVE METABOLIC PANEL (CMP) Routine 06/23/2023 3:07 PM EST Type 2 diabetes mellitus without complication, without long-term current use of insulin HEPATITIS C ANTIBODY, QUALITATIVE Routine 10/31/2021 8:40 AM EDT Need for hepatitis C screening test from Last 3 Months or Most Recently Relevant to Health Maintenance Results * (ABNORMAL) DIRECT LDL (06/23/2023 3:07 PM EST) LDL Chol (Direct) 158(H) 0 - 100 mg/dL [facility] Blood 06/23/2023 3:07 PM EST 06/23/2023 3:13 PM EST us Nguyen Lea MD LAB BLOOD BKR ORDERABLES Final R esult [address] [address], [facility] * Comprehensive metabolic panel (06/23/2023 3:07 PM EST) SODIUM 138 136 - 145 mmol/L [facility] POTASSIUM 3.9 3.5 - 5.1 mmol/L [facility] CHLORIDE 104 98 - 107 mmol/L [facility] CO2 27 21 - 32 mmol/L [facility] BUN 16 7 - 18 mg/dL [facility] CREATININE 1.20 0.5 - 1.3 mg/dL [facility] GLUCOSE 100 74 - 106 mg/dL [facility] ALBUMIN 4.1 3.0 - 4.5 g/dL [facility] TOTAL PROTEIN 7.8 6.4 - 8.2 g/dL [facility] CALCIUM 9.5 8.5 - 10.1 mg/dL [facility] ALKALINE PHOSPHATASE 121 46 - 130 U/L [facility] TOTAL BILIRUBIN 0.7 0.2 - 1.1 mg/dL [facility] AST 21 15 - 37 U/L [facility] ALT 55 13 - 61 U/L [facility] EGFR 80 >59 mL/min/1.7 3m2 [facility] Comment:Estimated glomerular filtration rate calculated using the CKD-EPI refit equation. Blood 06/23/2023 3:07 PM EST 06/23/2023 3:13 PM EST us Nguyen Lea MD LAB BLOOD BKR ORDERABLES Final R esult Performing Organization Address City/[facility]/ZIP Co de Phone Number [address] * Hemoglobin A1c (06/23/2023 3:07 PM EST) HEMOGLOBIN A1C 5.4 <5.7 % [facility] Comment: PreDiabetic >5.7% - <=6.5% Diabetic >6.5% Blood 06/23/2023 3:07 PM EST 06/23/2023 3:13 PM EST us Nguyen Lea MD LAB BLOOD BKR ORDERABLES Final R esult [address] * Hepatitis C antibody, qualitative (10/31/2021 8:40 AM EDT) HCV ANTIBODY Non-Reacti ve Non-Reacti ve [facility] Blood 10/31/2021 8:40 AM EDT 10/31/2021 8:56 AM EDT Breanna Bradley DO LAB BLOOD BKR ORDERABLES Daniela l Result [facility] [address] [address], [facility] from Last 3 Months or Most Recently Relevant to Health Maintenance Care Teams Shovel Logger Relationship Specialty Start Date End Date Breanna Bradley DO [address] [place] [address] [email or web address] PCP - General Family Medicine 10/23/21 Brian Cisneros MD [address] [place] [address] Handle Rounder Operator Cardiology 10/27/22 Harvey Valentine MD [address] [place] [address] Tray Casting Machine Operator Internal Medicine 10/27/22 Lisa Myers, PanfiloD [address] [place] [address] [email or web address] Pharmacist Pharmacy 05/30/23 Additional Source Comments The information contained in this document represents components of the legal health record. It is not the complete legal health record.[facility]
--- OUTSIDE RECORDS SUMMARY | 2025-07-18 17:21 | XMS_ITS | Encounter Summary ---
Author Organization [facility] Address [address] [employer] [address] [address] Phone Care Team Providers Care Tree Fruit And Nut Farming Supervisor Name Role Phone Breanna Bradley DO Primary Care Provider [phone] Breanna Bradley DO Unavailable [phone] Brian Cisneros MD Unavailable [phone] Harvey Valentine MD Unavailable Ani Ramirez MA Unavailable [email or web address] Lisa Roberto PharmD Un available Encounter Details Date Type Department Care Team (Late st Contact Info) Description 10/31/2021 Procedure Pass [facility] [address] [place] [id number] Social History Tobacco Use Types Packs/Day Years Used Date Smoking Tobacco: Never Smokeless Tobacco: Never Alcohol Use Standard Drinks/Week Comments Yes 0 (1 standard drink = 0.6 oz pur e alcohol) socially Sex and Gender Information Value Date Recorded Sex Assigned at Male 08/22/2021 4:18 PM EST Legal Sex Male 4:14 PM EST Gender Identity Male 08/22/2021 4:18 PM EST Sexual Orientation Straight 08/22/2021 4: 18 PM EST documented as of this encounter Plan of Treatment Not on file documented as of this encounter Visit Diagnoses Not on filedocumented in this encounter Additional Health Concerns Assessment Noted Time PHQ-9 Depression Total Score: 1 10/31/19 3:19 PM EDT PHQ-2 Depression Total Score: 0 10/31/19 3:19 PM EDT documented as of this encounter Care Teams Tree Fruit And Nut Farming Supervisor Relationship Specialty Start Date End Date Bryan Bradleyhailey Meeks DO [address] [place] [address] [email or web address] PCP - General Family Medicine 10/23/21 Breanna Bradley DO [address] [place] [address] Insurance Assigned Provider 10/25/23 02/28/24 Brian Cisneros MD [address] [place] [address] Social Media Specialist Cardiology 10/27/22 Harvey Valentine MD [address] [place] [address] General Foreman Internal Medicine 10/27/22 Ani Ramirez MA [address] [place] [id number] Community Health Worker 05/27/23 Lisa Myers, PanfiloD [address] [place] [address] [email or web address] Pharmacist Pharmacy 05/30/23 documented as of this encounter Additional Source Comments The information contained in this document represents components of the legal health record. It is not the complete legal health record.[facility]
== END 2025-07-18 15:35 | disposition home or self-care (01) ==
LOC: HO.HMCFMS 15:06
PROVIDERS: Visit Provider Student in an Organized Health Care Education/Training Program
DX: E11.9 Type 2 diabetes mellitus without complications (principal); E78.5 Hyperlipidemia, unspecified; E66.812 Obesity, class 2; I10 Essential (primary) hypertension; G47.33 Obstructive sleep apnea (adult) (pediatric)

== ENCOUNTER → 2025-07-18 15:06 | Outpatient (BNVA) | payer OTHER, SELFPAY | PROVIDERS: Visit Provider Student in an Organized Health Care Education/Training Program | DX: E11.9 Type 2 diabetes mellitus without complications (principal); E78.5 Hyperlipidemia, unspecified; I10 Essential (primary) hypertension; G47.33 Obstructive sleep apnea (adult) (pediatric); E66.812 Obesity, class 2; Z68.36 Body mass index [BMI] 36.0-36.9, adult; Z71.3 Dietary counseling and surveillance | CPT/HCPCS: 99212 ==